=== PATIENT | female | born 1965 | race Two or more races ===

== ENCOUNTER 2019-08-17 14:52 | Emergency (ER) | payer OTHER ==
[~2019-08-17] VITALS: Ht 152.4 cm; Wt 71.2 kg
[2019-08-17 15:02] VITALS: BP 132/83
== END 2019-08-17 15:19 | disposition home or self-care (01) ==
LOC: ER 14:56
DX: Z03.818 Encounter for observation for suspected exposure to other biological agents ruled out (principal)
CPT/HCPCS: 99283; U0003

== ENCOUNTER 2019-09-14 14:37 | Emergency (ER) | payer OTHER ==
[~2019-09-14] VITALS: Ht 152.4 cm; Wt 68.0 kg
[2019-09-14 14:47] VITALS: BP 140/82
--- NOTE | 2019-09-14 16:31 | NUR ---
Patient discharged to home in stable condition. Written and verbal after care instructions given. Patient verbalizes understanding of instruction.
== END 2019-09-14 16:31 | disposition home or self-care (01) ==
LOC: ER 14:39
DX: Z03.818 Encounter for observation for suspected exposure to other biological agents ruled out (principal)
CPT/HCPCS: 99283; C9803; U0003

== ENCOUNTER 2019-09-23 14:30 | Emergency (ER) | payer OTHER ==
[~2019-09-23] VITALS: Ht 157.5 cm; Wt 68.0 kg
[2019-09-23 14:35] VITALS: BP 123/80
--- NOTE | 2019-09-23 15:00 | NUR ---
COVID SWAB OBTAINED AND SENT TO LAB.
--- NOTE | 2019-09-23 15:02 | NUR ---
Patient discharged to home in stable condition. Written and verbal after care instructions given. Patient verbalizes understanding of instruction.
== END 2019-09-23 15:03 | disposition home or self-care (01) ==
LOC: ER 14:34
DX: Z11.59 Encounter for screening for other viral diseases (principal)
CPT/HCPCS: 99283; C9803; U0003

== ENCOUNTER 2019-10-07 14:40 | Emergency (ER) | payer OTHER ==
[~2019-10-07] VITALS: Ht 157.5 cm; Wt 68.0 kg
[2019-10-07 14:45] VITALS: BP 123/68
== END 2019-10-07 15:04 | disposition home or self-care (01) ==
LOC: ER 14:41
DX: Z11.59 Encounter for screening for other viral diseases (principal)
CPT/HCPCS: 99283; C9803; U0003

== ENCOUNTER 2019-10-12 14:40 | Emergency (ER) | payer OTHER ==
[~2019-10-12] VITALS: Ht 152.4 cm; Wt 68.0 kg
[2019-10-12 14:56] VITALS: BP 124/73
--- NOTE | 2019-10-12 15:42 | NUR ---
COVID SWAB DONE AND SENT TO LAB
== END 2019-10-12 15:43 | disposition home or self-care (01) ==
LOC: ER 14:42
DX: Z03.818 Encounter for observation for suspected exposure to other biological agents ruled out (principal)
CPT/HCPCS: 99283; C9803; U0003

== ENCOUNTER 2019-10-20 14:30 | Emergency (ER) | payer OTHER ==
[~2019-10-20] VITALS: Ht 152.4 cm; Wt 68.0 kg
[2019-10-20 14:44] VITALS: BP 126/63
--- NOTE | 2019-10-20 15:06 | NUR ---
COVID SWAB DONE AND SENT TO LAB
== END 2019-10-20 15:07 | disposition home or self-care (01) ==
LOC: ER 14:31
DX: Z11.59 Encounter for screening for other viral diseases (principal)
CPT/HCPCS: 99283; C9803; U0003

== ENCOUNTER 2019-10-31 14:46 | Emergency (ER) | payer OTHER ==
[~2019-10-31] VITALS: Ht 152.4 cm; Wt 68.0 kg
[2019-10-31 14:56] VITALS: BP 120/71
== END 2019-10-31 15:42 | disposition home or self-care (01) ==
LOC: ER 14:46
DX: Z20.828 Contact with and (suspected) exposure to other viral communicable diseases (principal)
CPT/HCPCS: 99283; C9803; U0003

== ENCOUNTER 2019-11-18 14:39 | Emergency (ER) | payer OTHER ==
[~2019-11-18] VITALS: Ht 152.4 cm; Wt 72.6 kg
[2019-11-18 14:47] VITALS: BP 133/71
== END 2019-11-18 15:27 | disposition home or self-care (01) ==
LOC: ER 14:41
DX: Z20.828 Contact with and (suspected) exposure to other viral communicable diseases (principal)
CPT/HCPCS: 99283; C9803; U0003

== ENCOUNTER 2019-11-23 14:39 | Emergency (ER) | payer OTHER ==
[~2019-11-23] VITALS: Ht 152.4 cm; Wt 72.6 kg
[2019-11-23 14:54] VITALS: BP 122/73
== END 2019-11-23 15:18 | disposition home or self-care (01) ==
LOC: ER 14:40
DX: Z20.828 Contact with and (suspected) exposure to other viral communicable diseases (principal)
CPT/HCPCS: 99283; C9803; U0003

== ENCOUNTER 2019-12-10 14:34 | Emergency (ER) | payer OTHER ==
[~2019-12-10] VITALS: Ht 152.4 cm; Wt 72.6 kg
[2019-12-10 14:46] VITALS: BP 137/71
--- NOTE | 2019-12-10 14:55 | NUR ---
COVID SPECIMEN COLLECTED AND SENT TO LAB.
--- NOTE | 2019-12-10 14:59 | NUR ---
Patient discharged to home in stable condition. Written and verbal after care instructions given. Patient verbalizes understanding of instruction.
== END 2019-12-10 14:59 | disposition home or self-care (01) ==
LOC: ER 14:35
DX: Z20.828 Contact with and (suspected) exposure to other viral communicable diseases (principal)
CPT/HCPCS: 99283; C9803; U0003

== ENCOUNTER 2019-12-26 14:59 | Emergency (ER) | payer OTHER ==
[~2019-12-26] VITALS: Ht 167.6 cm; Wt 74.8 kg
[2019-12-26 15:09] VITALS: BP 134/88
--- NOTE | 2019-12-26 15:48 | NUR ---
COVID SWAB COLLECTED AND SENT TO LAB
== END 2019-12-26 15:48 | disposition home or self-care (01) ==
LOC: ER 15:02
DX: Z20.828 Contact with and (suspected) exposure to other viral communicable diseases (principal)
CPT/HCPCS: 99283; C9803; U0003

== ENCOUNTER 2020-01-04 14:45 | Emergency (ER) | payer OTHER ==
[~2020-01-04] VITALS: Ht 157.5 cm; Wt 72.6 kg
[2020-01-04 15:09] VITALS: BP 140/82
--- NOTE | 2020-01-05 13:04 | NUR ---
COVID RESULT: NEGATIVE
== END 2020-01-04 15:22 | disposition home or self-care (01) ==
LOC: ER 14:46
DX: Z20.828 Contact with and (suspected) exposure to other viral communicable diseases (principal)
CPT/HCPCS: 99283; C9803; U0003

== ENCOUNTER 2020-01-11 14:57 | Emergency (ER) | payer OTHER ==
[~2020-01-11] VITALS: Ht 152.4 cm; Wt 72.6 kg
[2020-01-11 15:03] VITALS: BP 118/68
== END 2020-01-11 15:19 | disposition home or self-care (01) ==
LOC: ER 14:58
DX: Z20.828 Contact with and (suspected) exposure to other viral communicable diseases (principal)
CPT/HCPCS: 99283; C9803; U0003

== ENCOUNTER 2020-01-21 14:38 | Emergency (ER) | payer OTHER ==
[~2020-01-21] VITALS: Ht 152.4 cm; Wt 72.6 kg
[2020-01-21 14:48] VITALS: BP 117/75
--- NOTE | 2020-01-21 15:19 | NUR ---
Patient discharged to home in stable condition. Written and verbal after care instructions given. Patient verbalizes understanding of instruction. Pt ambulatory with a steady gait
--- NOTE | 2020-01-21 15:19 | NUR ---
COVID SWAB DONE AND SENT TO LAB
--- NOTE | 2020-01-22 20:53 | NUR ---
LAB CALLED REGARDING NEGATIVE COVID RESULT.
== END 2020-01-21 15:20 | disposition home or self-care (01) ==
LOC: ER 14:40
DX: Z20.828 Contact with and (suspected) exposure to other viral communicable diseases (principal)
CPT/HCPCS: 99283; C9803; U0003

== ENCOUNTER 2020-01-31 14:40 | Emergency (ER) | payer OTHER ==
[~2020-01-31] VITALS: Ht 152.4 cm; Wt 72.6 kg
[2020-01-31 14:40] VITALS: BP 122/70
--- NOTE | 2020-01-31 15:48 | NUR ---
Patient discharged to home in stable condition. Written and verbal after care instructions given. Patient verbalizes understanding of instruction.
== END 2020-01-31 15:49 | disposition home or self-care (01) ==
LOC: ER 14:41
DX: Z20.828 Contact with and (suspected) exposure to other viral communicable diseases (principal)
CPT/HCPCS: 99283; C9803; U0003

== ENCOUNTER 2020-02-08 14:45 | Emergency (ER) | payer OTHER ==
[~2020-02-08] VITALS: Ht 152.4 cm; Wt 72.6 kg
[2020-02-08 14:50] VITALS: BP 116/65
--- NOTE | 2020-02-08 16:00 | NUR ---
covid test done & sent to lab.
--- NOTE | 2020-02-08 16:14 | NUR ---
Patient discharged to home in stable condition. Written and verbal after care instructions given. Patient verbalizes understanding of instruction.
== END 2020-02-08 16:14 | disposition home or self-care (01) ==
LOC: ER 14:46
DX: Z20.828 Contact with and (suspected) exposure to other viral communicable diseases (principal)
CPT/HCPCS: 99283; C9803; U0003

== ENCOUNTER 2020-02-21 14:37 | Emergency (ER) | payer OTHER ==
[~2020-02-21] VITALS: Ht 152.4 cm; Wt 72.6 kg
[2020-02-21 14:56] VITALS: BP 123/79
--- NOTE | 2020-02-21 15:44 | NUR ---
COVID SWAB SENT.
--- NOTE | 2020-02-21 15:44 | NUR ---
Patient discharged to home in stable condition. Written and verbal after care instructions given. Patient verbalizes understanding of instruction.
--- NOTE | 2020-02-23 02:29 | NUR ---
called pt for covid results. no one answered. vm left.
== END 2020-02-21 15:44 | disposition home or self-care (01) ==
LOC: ER 14:39
DX: Z20.828 Contact with and (suspected) exposure to other viral communicable diseases (principal)
CPT/HCPCS: 99283; C9803; U0003

== ENCOUNTER 2020-02-29 14:33 | Emergency (ER) | payer OTHER ==
[~2020-02-29] VITALS: Ht 152.4 cm; Wt 66.2 kg
[2020-02-29 14:53] VITALS: BP 132/76
--- NOTE | 2020-02-29 15:19 | NUR ---
Patient discharged to home in stable condition. Written and verbal after care instructions given. Patient verbalizes understanding of instruction.
== END 2020-02-29 15:19 | disposition home or self-care (01) ==
LOC: ER 14:35
DX: Z20.828 Contact with and (suspected) exposure to other viral communicable diseases (principal)
CPT/HCPCS: 99283; C9803; U0003

== ENCOUNTER 2020-03-08 14:43 | Emergency (ER) | payer OTHER ==
[~2020-03-08] VITALS: Ht 152.4 cm; Wt 72.6 kg
[2020-03-08 14:56] VITALS: BP 131/66
--- NOTE | 2020-03-08 15:33 | NUR ---
covid 19 swab collected and sent to lab
--- NOTE | 2020-03-08 15:33 | NUR ---
Patient discharged to home in stable condition. Written and verbal after care instructions given. Patient verbalizes understanding of instruction.
== END 2020-03-08 15:34 | disposition home or self-care (01) ==
LOC: ER 14:44
DX: Z20.828 Contact with and (suspected) exposure to other viral communicable diseases (principal)
CPT/HCPCS: 99283; C9803; U0003

== ENCOUNTER 2020-03-11 14:30 | Emergency (ER) | payer OTHER ==
[~2020-03-11] VITALS: Ht 152.4 cm; Wt 72.6 kg
[2020-03-11 14:50] VITALS: BP 116/73
--- NOTE | 2020-03-11 15:15 | NUR ---
covid 19 swab collected and sent to lab
--- NOTE | 2020-03-11 15:16 | NUR ---
Patient discharged to home in stable condition. Written and verbal after care instructions given. Patient verbalizes understanding of instruction.
== END 2020-03-11 15:16 | disposition home or self-care (01) ==
LOC: ER 14:32
DX: Z20.828 Contact with and (suspected) exposure to other viral communicable diseases (principal)
CPT/HCPCS: 99283; C9803; U0003

== ENCOUNTER 2020-05-04 14:44 | Emergency (ER) | payer OTHER ==
[~2020-05-04] VITALS: Ht 152.4 cm; Wt 72.6 kg
[2020-05-04 14:50] VITALS: BP 128/71
--- NOTE | 2020-05-04 15:07 | NUR ---
Patient discharged to home in stable condition. Written and verbal after care instructions given. Patient verbalizes understanding of instruction.
--- NOTE | 2020-05-04 15:10 | NUR ---
Covid swab obtained and sen to lab .
== END 2020-05-04 15:10 | disposition home or self-care (01) ==
LOC: ER 14:49
DX: Z20.822 Contact with and (suspected) exposure to COVID-19 (principal)
CPT/HCPCS: 99283; C9803; U0003

== ENCOUNTER 2020-06-01 14:39 | Emergency (ER) | payer OTHER ==
[~2020-06-01] VITALS: Ht 152.4 cm; Wt 72.6 kg
[2020-06-01 14:41] VITALS: BP 126/67
--- NOTE | 2020-06-01 15:09 | NUR ---
covid swab done and sent to lab
--- NOTE | 2020-06-01 15:10 | NUR ---
Patient discharged to home in stable condition. Written and verbal after care instructions given. Patient verbalizes understanding of instruction. Pt ambulatory with a steady gait
== END 2020-06-01 15:11 | disposition home or self-care (01) ==
LOC: ER 14:41
DX: Z20.822 Contact with and (suspected) exposure to COVID-19 (principal)
CPT/HCPCS: 99283; C9803; U0003

== ENCOUNTER 2020-07-13 14:33 | Emergency (ER) | payer OTHER ==
[~2020-07-13] VITALS: Ht 152.4 cm; Wt 75.3 kg
[2020-07-13 14:50] VITALS: BP 110/68
--- NOTE | 2020-07-13 14:52 | NUR ---
FOR ROUTINE COVID 19 TEST. DENIES SYMPTOMS. ALERT AND ORIENTED X4.
--- NOTE | 2020-07-13 15:28 | NUR ---
covid swab done and sent to the lab
--- NOTE | 2020-07-13 15:29 | NUR ---
Patient discharged to home in stable condition. Written and verbal after care instructions given. Patient verbalizes understanding of instruction. The patient left ER in stable condition.
== END 2020-07-13 15:33 | disposition home or self-care (01) ==
LOC: EDUNIT# 14:33 → ER 14:37
DX: Z20.822 Contact with and (suspected) exposure to COVID-19 (principal)
CPT/HCPCS: 99283; C9803; U0003

== ENCOUNTER 2020-08-10 14:38 | Emergency (ER) | payer OTHER ==
[~2020-08-10] VITALS: Ht 152.4 cm; Wt 72.6 kg
[2020-08-10 14:43] VITALS: BP 126/76
--- NOTE | 2020-08-10 14:56 | NUR ---
Patient discharged to home in stable condition. Written and verbal after care instructions given. Patient verbalizes understanding of instruction. Pt ambulatory with a steady gait
--- NOTE | 2020-08-10 14:56 | NUR ---
COVID SWAB DONE AND SENT TO LAB
== END 2020-08-10 14:57 | disposition home or self-care (01) ==
LOC: EDUNIT# 14:38 → ER 14:38
DX: Z20.822 Contact with and (suspected) exposure to COVID-19 (principal)
CPT/HCPCS: 99283; C9803; U0003

== ENCOUNTER 2020-08-20 14:45 | Emergency (ER) | payer OTHER ==
[~2020-08-20] VITALS: Ht 152.4 cm; Wt 72.6 kg
[2020-08-20 14:56] VITALS: BP 136/75
--- NOTE | 2020-08-20 15:13 | NUR ---
covid swab sent to lab. dPatient discharged to home in stable condition. Written and verbal after care instructions given. Patient verbalizes understanding of instruction.
== END 2020-08-20 15:14 | disposition home or self-care (01) ==
LOC: ER 14:46
DX: Z20.822 Contact with and (suspected) exposure to COVID-19 (principal)
CPT/HCPCS: 99283; C9803; U0003

== ENCOUNTER 2024-01-13 09:04 | Outpatient (CLI) | payer BC ==
[2024-01-13] MEDS ORDERED: IOHEXOL-300 100 ML VIAL IV ONE (09:38)
[2024-01-13 10:32] LABS: CREATININE 0.7 mg/dL (0.6-1.3)
== END 2024-01-13 23:59 | disposition home or self-care (01) ==
LOC: CT 09:04
PROVIDERS: ATTEND Family Medicine
DX: D25.9 Leiomyoma of uterus, unspecified (principal); K76.0 Fatty (change of) liver, not elsewhere classified; R77.8 Other specified abnormalities of plasma proteins
CPT/HCPCS: 74177; 84520; 82565; 36415; Q9967

== ENCOUNTER 2024-12-31 09:30 | Outpatient (CLI) | payer BC ==
[2024-12-31 10:21] LABS: PLATELET COUNT (AUTO) 211 K/uL (150-450); RED BLOOD CELL COUNT(AUTO) 3.87 MIL/uL (4.0-5.2); RED CELL DISTRIBUTION WIDTH 13.0 % (11.5-15.0); WHITE BLOOD COUNT (AUTO) 5.6 K/uL (4.3-11.0)
[2024-12-31 10:52] LABS: ASPARTATE AMINOTRANSFERASE 26.0 U/L (15-37); CALCIUM, SERUM 9.2 mg/dL (8.5-10.1); CREATININE 0.8 mg/dL (0.6-1.3); SODIUM SERUM 142.0 mmol/L (136-145); TOTAL PROTEIN, SERUM 7.4 g/dL (6.4-8.2); UREA NITROGEN, BLOOD 22.0 mg/dL (7-18)
[2024-12-31 10:58] LABS: IRON, SERUM 82.0 ug/dl (50-175)
== END 2024-12-31 23:59 | disposition home or self-care (01) ==
LOC: LAB 09:30
PROVIDERS: ATTEND Internal Medicine Hematology & Oncology
DX: Z13.228 Encounter for screening for other metabolic disorders (principal); E83.111 Hemochromatosis due to repeated red blood cell transfusions
CPT/HCPCS: 36415; 80053-TC; 82728-TC; 83540-TC; 85025-TC